=== PATIENT | female | born 1985 | race African-American/Black ===

== ENCOUNTER 2021-10-01 17:59 | Inpatient (IN) | payer OTHER ==
[~2021-10-01] VITALS: Ht 157.5 cm; Wt 97.1 kg
[2021-10-01 18:16] VITALS: BP 216/127
[2021-10-01 19:41] LABS: URINE BILIRUBIN NEGATIVE (Negative); URINE BLOOD 3+ (Negative); URINE CLARITY CLEAR; URINE COLOR YELLOW; URINE GLUCOSE-RANDOM* NEGATIVE (Negative); URINE KETONES NEGATIVE (Negative); URINE LEUKOCYTES-REFLEX NEGATIVE (Negative); URINE NITRITE-REFLEX NEGATIVE (Negative); URINE PROTEIN (DIPSTICK) 3+ (Negative); URINE UROBILINOGEN 0.2 E.U./dl (0.2-1.0)
[2021-10-01 19:59] LABS: SQUAMOUS >10 Many /LPF (0-3)
[2021-10-01 20:01] LABS: CRYSTALS None Seen /LPF (None Seen); HYALINE CASTS 0-3 Few /LPF (None Seen); URINE WBC-REFLEX 0-5 Rare /HPF (0-5)
[2021-10-01 20:02] LABS: COARSE GRANULAR CASTS 0-3 Few /LPF (None Seen)
[2021-10-01 20:10] LABS: ABSOLUTE NEUTROPHILS 4.2 thou/uL (1.4-8.2); BASOPHILS 1.8 % (0.0-2.0); EOSINOPHILS 4.1 % (0.0-3.0); HEMATOCRIT 42.9 % (37.0-47.0); HEMOGLOBIN 14.1 gm/dL (12.0-15.0); LYMPHOCYTES 28.6 % (24.0-44.0); MCH 29.4 pg (26.0-34.0); MCV 89.1 fL (80.0-100.0); MONOCYTES 8.3 % (1.0-8.0); PLATELET COUNT 372 thou/uL (150-400); POLYS 57.2 % (36.0-66.0); RBC 4.81 mil/uL (4.20-5.00); RDW 14.5 % (10.5-14.5); WBC 7.3 thou/uL (4.0-11.0)
[2021-10-01 20:16] LABS: CALCIUM 9.2 mg/dL (8.5-10.1); POTASSIUM 3.7 mmol/L (3.5-5.1)
[2021-10-01 20:26] LABS: TOTAL BILIRUBIN 0.7 mg/dL (0.2-1.0)
[2021-10-01 22:54] LABS: CHOLESTEROL 231 mg/dL (<200); HDL CHOLESTEROL 64 mg/dL (>40); LDL CHOLESTEROL 138 mg/dL (<100); SERUM ASSESSMENT Clear; TC:HDL 3.6 Ratio (Not establshd); TRIGLYCERIDE 147 mg/dL (<150); VLDL 29 mg/dL (<40)
[2021-10-01 23:28] VITALS: BP 151/92
[2021-10-02] VITALS (59 sets, daily range): BP systolic 113–207; BP diastolic 57–130
[2021-10-02 05:51] LABS: HEMATOCRIT 36.7 % (37.0-47.0); HEMOGLOBIN 12.3 gm/dL (12.0-15.0); MCH 29.7 pg (26.0-34.0); MCHC 33.5 g/dL (28.0-37.0); MCV 88.7 fL (80.0-100.0); RBC 4.14 mil/uL (4.20-5.00); WBC 6.1 thou/uL (4.0-11.0)
[2021-10-02 06:40] LABS: CALCIUM 8.7 mg/dL (8.5-10.1); CREATININE 1.1 mg/dL (0.6-1.0); POTASSIUM 3.6 mmol/L (3.5-5.1)
--- NOTE | 2021-10-02 07:17 | EKG ---
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 : 1985 Requested By: Ny Orona Order Number: [id number] MD: Ortega Jama Measurements Intervals [place] Rate: 100 P: 69 SD: 137 QRS: 77 QRSD: 75 T: 102 QT: 359 QTc: 463 Interpretive Statements Sinus tachycardia Nonspecific T abnormalities, lateral leads No previous ECG available for comparison Electronically Signed On 10-02-2021 7:17:28 [employer] by Ortega Jama [email or web address] <ELECTRONICALLY SIGNED> By: Ortega Jama MD, [facility] 10/02/21 0717 1830 1830 Ortega Jama MD, FACC /EPI
--- NOTE | 2021-10-02 15:03 | 2DMMODE ---
[facility] [address] [place] [address] 2 D/M-MODE ECHOCARDIOGRAM Name: JUSTO WOODRUFF Room #: 240-P ADM IN M.R.#: [id number] Admission: 10/01/21 Attend Phys: Robin Stewart DO Discharge: Date of : 89 Report #: [id number] THIS REPORT FOR: cc: FAM - Family physician unknown FAM - Family physician unknown Indra Duran MD ~ APPROVED REPORT Study performed: 10/02/2021 14:05:38 EXAM: Comprehensive 2D, Doppler, and color-flow Echocardiogram Patient Location: ICU Room #: 240 Status: routine BSA: 1.97 HR: 91 bpm BP: 168/105 mmHg Rhythm: NSR Other Information Study Quality: Good Indications Congestive Heart Failure Diabetes Hypertension/HDD 2D Dimensions RVDd: 31.38 mm IVSd: 12.98 (7-11mm) LVOT Diam: 20.00 (18-24mm) LVDd: 37.80 mm PWd: 12.76 (7-11mm) Ascending Ao: 26.07 (22-36mm) LVDs: 23.68 (25-40mm) Left Atrium: 41.55 (27-40mm) Aortic Root: 25.77 mm IVC: 20.00 mm Volumes Left Atrial Volume (Systole) Single Plane 4CH: 65.79 mL Single Plane 2CH: 51.48 mL LA ESV Index: 31.00 mL/m2 Aortic Valve AoV Peak Beto.: 1.23 m/s AO Peak Gr.: 6.07 mmHg LVOT Max P.68 mmHg [facility] [address] [place] [address] 2 D/M-MODE ECHOCARDIOGRAM Name: JUSTO WOODRUFF Room #: 240-P [facility] IN M.R.#: [id number] Admission: 10/01/21 Attend Phys: Robin Stewart DO Discharge: Date of : 89 Report #: [id number] LVOT Max V: 0.96 m/s YOLANDA Vmax: 2.44 cm2 Pulmonary Valve PV Peak Beto.: 0.86 m/s PV Peak Gr.: 2.97 mmHg Left Ventricle The left ventricle is normal size. There is normal LV segmental wall motion. Mild concentric left ventricular hypertrophy. Left ventricular systolic function is normal. The left ventricular ejection fraction is within the normal range. LVEF is 55-60%. This study is not technically sufficient to allow evaluation of the LV diastolic function. Right Ventricle The right ventricle is normal size. The right ventricular systolic function is normal. Atria The left atrium size is normal. The right atrium size is normal. Aortic Valve The aortic valve is normal in structure. No aortic regurgitation is present. There is no aortic valvular stenosis. Mitral Valve The mitral valve is normal in structure. Trace to mild mitral regurgitation. No evidence of mitral valve stenosis. Tricuspid Valve The tricuspid valve is normal in structure. There is no tricuspid valve regurgitation noted. Pulmonic Valve The pulmonary valve is normal in structure. There is no pulmonic valvular regurgitation. Great Vessels The aortic root is normal in size. IVC is normal in size and collapses >50% with inspiration. Pericardium There is no pericardial effusion. <Conclusion> [facility] [address] [place] [address] 2 D/M-MODE ECHOCARDIOGRAM Name: JUSTO WOODRUFF Room #: 240-P ADM IN M.R.#: [id number] Admission: 10/01/21 Attend Phys: Robin Stewart DO Discharge: Date of : 89 Report #: [id number] The left ventricle is normal size. Mild concentric left ventricular hypertrophy. Left ventricular systolic function is normal. The right ventricle is normal size. The left atrium size is normal. The aortic valve is normal in structure. Trace to mild mitral regurgitation. <ELECTRONICALLY SIGNED> By: Indra Duran MD 10/02/21 1502 1502 150 Indra Duran MD /INF
[2021-10-03] VITALS (17 sets, daily range): BP systolic 164–206; BP diastolic 92–126
[2021-10-03 05:08] LABS: CALCIUM 8.3 mg/dL (8.5-10.1); CREATININE 1.3 mg/dL (0.6-1.0)
[2021-10-03 07:09] LABS: GLYCOHEMOGLOBIN (HGB A1C) 8.9 % (4.8-5.6)
[2021-10-04 00:05] VITALS: BP 190/122
[2021-10-04 04:30] VITALS: BP 196/127
[2021-10-04 08:28] VITALS: BP 213/129
[2021-10-04 08:30] VITALS: BP 193/118
[2021-10-04 11:13] LABS: CALCIUM 9.2 mg/dL (8.5-10.1); CREATININE 1.2 mg/dL (0.6-1.0); MAGNESIUM 1.5 mg/dL (1.8-2.4); POTASSIUM 3.8 mmol/L (3.5-5.1)
[2021-10-04 11:33] VITALS: BP 180/114
[2021-10-04] MEDS ORDERED: DEMADEX20 MG PO (12:56)
[2021-10-04] MEDS ORDERED: BYSTOLIC20 MG PO (12:56)
[2021-10-04] MEDS ORDERED: LIPITOR40 MG PO (12:56)
[2021-10-04] MEDS ORDERED: AMLODIPINE BESY10 MG PO (12:56)
[2021-10-04] MEDS ORDERED: ALDACTONE50 MG PO (12:56)
[2021-10-04] MEDS ORDERED: REGLAN 5 MG TAB5 MG PO (12:56)
[2021-10-04] MEDS ORDERED: METFORMIN HCL500 MG PO (12:56)
[2021-10-04] MEDS ORDERED: PEPCID20 MG PO (12:56)
[2021-10-04] MEDS ORDERED: CLONIDINE HCL0.3 M3 PO (12:56)
[2021-10-04] MEDS ORDERED: BENICAR40 MG PO (12:56)
[2021-10-04 13:01] VITALS: BP 180/114
== END 2021-10-04 13:42 | disposition home or self-care (01) | DRG 291 ==
LOC: ER 17:59 → ICU 21:54 → EROBS 21:54 → 2N 10-02 00:22 → ICU 10-02 05:09 → 3W 10-03 17:03
PROVIDERS: Internal Medicine; Nurse Practitioner; Nurse Practitioner Family; ADMIT Pediatrics; ATTEND Pediatrics
DX: I11.0 Hypertensive heart disease with heart failure (principal); I50.33 Acute on chronic diastolic (congestive) heart failure; N17.9 Acute kidney failure, unspecified; I16.0 Hypertensive urgency; Z20.822 Contact with and (suspected) exposure to COVID-19; E66.01 Morbid (severe) obesity due to excess calories; Z68.39 Body mass index [BMI] 39.0-39.9, adult; E78.5 Hyperlipidemia, unspecified; E11.9 Type 2 diabetes mellitus without complications
CPT/HCPCS: 10078; 10203; 10779